=== PATIENT | female | born 1980 | race Two or more races ===

== ENCOUNTER 2023-12-30 12:13 | Inpatient (IN) | payer OTHER ==
[~2023-12-30] VITALS: Ht 160 cm; Wt 126.0 kg
[2023-12-30] MEDS: ASPirin 325 MG TAB PO ONE (12:41)
[2023-12-30] MEDS: HYDROcodone-ACET 10/325MG TAB PO ONE (12:41)
[2023-12-30] MEDS: NITROGLYCERIN 0.4 MG SL TAB SL ONE (13:09)
[2023-12-30 13:11] LABS: Basophils # (auto) 0.1 10 ^3/uL (0-0.2); Basophils % (auto) 0.8 % (0.0-2.0); Eosinophils # (auto) 0.2 10 ^3/uL (0-0.8); Eosinophils % (auto) 1.6 % (0.0-7.0); Hematocrit 38.5 % (36.0-46.0); Hemoglobin 13.2 g/dL (12.2-16.2); Lymphocytes # (auto) 2.3 10 ^3/uL (0.4-5.4); Lymphocytes % (auto) 22.6 % (10.0-50.0); Mean Corpuscular Hemoglobin 28.3 pg (28.0-32.0); Mean Corpuscular Hgb Conc. 34.4 g/dL (32.0-36.0); Mean Corpuscular Volume 82.4 fL (80.0-100.0); Monocytes # (auto) 0.5 10 ^3/uL (0-1.3); Monocytes % (auto) 5.3 % (0.0-12.0); Neutrophils # (auto) 7.1 10 ^3/uL (1.6-8.6); Neutrophils % (auto) 69.7 % (37.0-80.0); Platelet Count (auto) 313 10^3/uL (140-450); Red Blood Cells 4.67 10^6/uL (4.0-5.20); White Blood Cell 10.2 10^3/uL (4.4-10.8)
[2023-12-30 13:25] LABS: Alanine Aminotransferase 26 U/L (7-40); Albumin 4.1 g/dL (3.2-4.8); Alkaline Phosphatase 94 U/L (46-116); Anion Gap 9 (5-15); Aspartate Aminotransferase 24 U/L (13-40); BUN/Creatinine Ratio 15.3 (10.0-20.0); Bilirubin, Total 0.2 mg/dL (0.2-1.0); Blood Urea Nitrogen 15 mg/dL (9-23); Calcium 9.5 mg/dL (8.7-10.4); Carbon Dioxide 21 mmol/L (20-30); Chloride 104 mmol/L (98-107); Glucose 236 mg/dL (74-106); Magnesium 1.6 mg/dL (1.6-2.6); Potassium 4.4 mmol/L (3.5-5.1); Sodium 134 mmol/L (136-145); Total Protein 6.7 g/dL (5.7-8.2)
[2023-12-30 13:50] LABS: Urine Bacteria None Seen /hpf (None Seen)
[2023-12-30 14:04] LABS: Urine Blood Negative /uL (Negative); Urine Clarity Clear (Clear); Urine Color Light-Yellow (Yellow); Urine Protein, UAD Negative (Negative); Urine Specific Gravity 1.022 (1.001-1.035); Urine Urobilinogen Normal (Negative); Urine WBC 1 /hpf (0 - 5); Urine pH 6.5 (5.0-9.0)
[2023-12-30 16:21] VITALS: PULSE 86; RESP 16; O2SAT 100
[2023-12-30 19:45] VITALS: PULSE 84; RESP 17; O2SAT 97
[2023-12-30] MEDS ORDERED: ACETAMINOPHEN 325 MG TAB PO PRN (22:30)
[2023-12-30] MEDS ORDERED: HYDROcodone-ACET 5/325MG TAB PO PRN (22:30)
[2023-12-30] MEDS ORDERED: ONDANSETRON HCL 4 MG/2 ML VIAL IV PRN (22:30)
[2023-12-30] MEDS ORDERED: DOCUSATE SOD 100 MG CAP PO PRN (22:30)
[2023-12-30] MEDS ORDERED: MORPHINE SULFATE INJ 2 MG/ml SYRG IV PRN ×2 (22:30→23:00)
[2023-12-30] MEDS: SODIUM CHLORIDE 0.9% 1,000 ML IV SCH (22:37)
[2023-12-30] MEDS ORDERED: NITROGLYCERIN 0.4 MG SL TAB SL PRN (23:00)
[2023-12-31] VITALS (7 sets, daily range): BP systolic 117–140; BP diastolic 60–77; PULSE 69–88; RESP 14–20; TEMP 97.8–98.2; O2SAT 93–99
[2023-12-31 06:04] LABS: Basophils # (auto) 0.1 10 ^3/uL (0-0.2); Basophils % (auto) 0.8 % (0.0-2.0); Eosinophils # (auto) 0.2 10 ^3/uL (0-0.8); Eosinophils % (auto) 2.6 % (0.0-7.0); Hematocrit 34.6 % (36.0-46.0); Hemoglobin 12.1 g/dL (12.2-16.2); Lymphocytes # (auto) 2.5 10 ^3/uL (0.4-5.4); Lymphocytes % (auto) 27.6 % (10.0-50.0); Mean Corpuscular Hemoglobin 28.6 pg (28.0-32.0); Mean Corpuscular Hgb Conc. 34.9 g/dL (32.0-36.0); Mean Corpuscular Volume 81.8 fL (80.0-100.0); Monocytes # (auto) 0.6 10 ^3/uL (0-1.3); Monocytes % (auto) 6.6 % (0.0-12.0); Neutrophils # (auto) 5.7 10 ^3/uL (1.6-8.6); Neutrophils % (auto) 62.4 % (37.0-80.0); Platelet Count (auto) 287 10^3/uL (140-450); Red Blood Cells 4.23 10^6/uL (4.0-5.20); White Blood Cell 9.2 10^3/uL (4.4-10.8)
[2023-12-31 06:24] LABS: Alanine Aminotransferase 22 U/L (7-40); Albumin 3.7 g/dL (3.2-4.8); Alkaline Phosphatase 73 U/L (46-116); Anion Gap 7 (5-15); Aspartate Aminotransferase 15 U/L (13-40); BUN/Creatinine Ratio 15.1 (10.0-20.0); Bilirubin, Total 0.4 mg/dL (0.2-1.0); Blood Urea Nitrogen 11 mg/dL (9-23); Calcium 9.2 mg/dL (8.7-10.4); Carbon Dioxide 23 mmol/L (20-30); Chloride 105 mmol/L (98-107); Glucose 167 mg/dL (74-106); Potassium 3.9 mmol/L (3.5-5.1); Sodium 135 mmol/L (136-145); Total Protein 6.3 g/dL (5.7-8.2)
[2023-12-31] MEDS ORDERED: DEXTROSE (50%) 50ML SYRG IV PRN ×2 (08:00)
[2023-12-31 08:27] LABS: Triglycerides 128 mg/dL (< 150)
[2023-12-31 08:28] LABS: LDL Cholesterol 109 mg/dL (< 100)
[2023-12-31 08:29] LABS: Cholesterol 167 mg/dL (< 200); HDL Cholesterol 47 mg/dL (40-59)
[2023-12-31] MEDS: ASPirin 81 mg TAB PO SCH (09:20)
[2023-12-31] MEDS ORDERED: InsuLIN REG 1unit/0.01ml Soln (100units/ml) SC SCH (11:30)
[2023-12-31] MEDS ORDERED: ACCU-CHEK COMFORT CURVE STRIP VI SCH (11:30)
[2023-12-31] MEDS ORDERED: ASPI-325 PO (11:49)
[2023-12-31] MEDS ORDERED: BLOO1KIT60 XX (11:49)
[2023-12-31] MEDS ORDERED: PANT40TA2 PO (11:49)
[2023-12-31] MEDS ORDERED: EMPA1TAB PO (11:49)
[2023-12-31] MEDS ORDERED: ATOR-507 PO (11:49)
[2023-12-31] MEDS ORDERED: LANC-347 XX (11:49)
[2023-12-31] MEDS: ACCU-CHEK COMFORT CURVE STRIP VI SCH (12:14)
[2023-12-31] MEDS: InsuLIN REG 1unit/0.01ml Soln (100units/ml) SC SCH (12:16)
[2023-12-31 13:20] LABS: Folate (Folic Acid) 22.03 ng/mL (>5.38)
== END 2023-12-31 13:40 | disposition home or self-care (01) | DRG 392 ==
LOC: ER 12:13 → TELE 22:50 → TELE-CENTR 22:50
PROVIDERS: ADMIT Internal Medicine; ATTEND Internal Medicine
DX: K21.9 Gastro-esophageal reflux disease without esophagitis (principal); E87.1 Hypo-osmolality and hyponatremia; Z68.42 Body mass index [BMI] 45.0-49.9, adult; E11.9 Type 2 diabetes mellitus without complications; E78.5 Hyperlipidemia, unspecified; E66.01 Morbid (severe) obesity due to excess calories; Z79.899 Other long term (current) drug therapy; Z79.4 Long term (current) use of insulin
CPT/HCPCS: 36415; 71045; 80053; 80061; 81001; 82306; 82607; 82746; 82962; 83036; 83735; 83880; 84439; 84443; 84484; 85025; 93005; 99291; G0378; J1815

== ENCOUNTER → 2024-01-10 | Outpatient (CLI) | payer OTHER ==
[~2024-01-10] MED LIST: ASPI-325 PO; ATOR-507 PO; BLOO1KIT60 XX; EMPA1TAB PO; LANC-347 XX; PANT40TA2 PO
== END | disposition home or self-care (01) ==
LOC: XYW 09:13
PROVIDERS: ATTEND Internal Medicine
DX: R07.9 Chest pain, unspecified (principal); E66.9 Obesity, unspecified; V89.2XXA Person injured in unspecified motor-vehicle accident, traffic, initial encounter
CPT/HCPCS: 93306

== ENCOUNTER → 2024-03-30 | Outpatient (CLI) | payer OTHER ==
[~2024-03-30] VITALS: Ht 160 cm; Wt 121.1 kg
[2024-03-30] MEDS: ADENOSINE 102 MG in GIVE UN-DILUTED 0 ML IV ONE (08:39)
--- NOTE | 2024-03-30 11:27 | DVHSR ---
APPROVED REPORT Exam: Nuclear Stress Test BMI: 0 Stress Test Details HR Max Heart Rate (APMHR): 178.162936 bpm Target HR (85% APMHR): 151.556412 bpm BP ECG Stress ECG Conclusion Resting ECG shows mild anterior anterolateral wall defect in the basal to mid segment. Likely repres enting breast attenuation artifact. Stress images shows the same mild anterior anterolateral wall defect likely representing the same att enuation artifact due to high likelihood breast attenuation. Overall preserved left ventricular systolic function at 76%. Impression: Anterior anterolateral wall defect of mild intensity in the basal to mid segment of the anterior anterolateral wall likely representing breast attenuation artifact, clinical correlation is required, well-preserved left ventricular systolic function, likely low risk study NM EXAM: Myocardial Perfusion REST/STRESS Imaging Protocol: Rest Tc-99m/Stress Tc-99m 1 day Resting Data Rest SPECT myocardial perfusion imaging was performed in supine position 60 minutes following the int ravenous injection of 14 mCi of Tc-99m Sestamibi. Time of rest injection: 0730 Time of rest imagin Administration Route: IV Administration Site: Right Arm Pharmacologic Stress Pharmacologic stress test was performed by injecting Adenosine mg IV push followed by the intravenou s injection of 35 mCi of Tc-99m Sestamibi. Time of stress injection: 0840 Time of stress imagin Administration Route: IV Administration Site: Right Arm Gated Stress SPECT was performed 60 minutes after stress injection. The images were gated to evaluate regional wall motion and calculate left ventricular ejection fracti on. Stress only was performed in the Supine position. Nuclear Conclusion ECG Findings: negative for ischemia Clinical Findings: negative for ischemia Nuclear Findings: negative for ischemia Exercise Capacity: not assessed Left Ventricular Function: normal Risk Study: low Resting ECG shows mild anterior anterolateral wall defect in the basal to mid segment. Likely repres enting breast attenuation artifact. Stress images shows the same mild anterior anterolateral wall defect likely representing the same att enuation artifact due to high likelihood breast attenuation. Overall preserved left ventricular systolic function at 76%. Impression: Anterior anterolateral wall defect of mild intensity in the basal to mid segment of the anterior anterolateral wall likely representing breast attenuation artifact, clinical correlation is required, well-preserved left ventricular systolic function, likely low risk study
== END | disposition home or self-care (01) ==
LOC: XY 07:32
PROVIDERS: ATTEND Student in an Organized Health Care Education/Training Program
DX: R07.9 Chest pain, unspecified (principal)
CPT/HCPCS: 78452; 93017; A9500; J0153

== ENCOUNTER 2024-05-23 19:59 | Emergency (ER) | payer MEDICAID ==
[~2024-05-23] VITALS: Ht 160 cm; Wt 109.0 kg
[2024-05-23 20:47] LABS: COVID19 ANTIGEN SOFIA FIA NEGATIVE (NEGATIVE); Rapid Influenza A Negative (Negative); Rapid Influenza B Negative (Negative)
--- NOTE | 2024-05-23 20:50 | DVH ---
EXAM: XY CHEST XRAY 1 VIEW CLINICAL HISTORY: Cough x1.5 month TECHNIQUE: Single AP view of the chest WID: COMPARISON: None FINDINGS: Lines and tubes: None Chest: The heart size and pulmonary vasculature is within normal limits. No pleural effusion, pneumothorax, or consolidation. The osseous structures are grossly intact. IMPRESSION: No acute cardiopulmonary abnormality.
[2024-05-23] MEDS: IPRATROPIUM BROM 0.5 MG/2.5ML INH SOL NEB ONE (21:02)
[2024-05-23] MEDS: ALBUTEROL SULF 2.5 MG/0.5ML(0.5%) NEB SOLN NEB ONE (21:02)
[2024-05-23 21:58] LABS: Basophils # (auto) 0.1 10 ^3/uL (0-0.2); Basophils % (auto) 0.9 % (0.0-2.0); Eosinophils # (auto) 0.2 10 ^3/uL (0-0.8); Eosinophils % (auto) 2.4 % (0.0-7.0); Hematocrit 42.8 % (36.0-46.0); Lymphocytes # (auto) 3.4 10 ^3/uL (0.4-5.4); Lymphocytes % (auto) 34.4 % (10.0-50.0); Mean Corpuscular Hemoglobin 26.8 pg (28.0-32.0); Mean Corpuscular Hgb Conc. 32.8 g/dL (32.0-36.0); Mean Corpuscular Volume 81.8 fL (80.0-100.0); Monocytes # (auto) 0.7 10 ^3/uL (0-1.3); Monocytes % (auto) 7.7 % (0.0-12.0); Neutrophils # (auto) 5.3 10 ^3/uL (1.6-8.6); Neutrophils % (auto) 54.6 % (37.0-80.0); Nucleated Red Blood Cells % 0.1 %; Platelet Count (auto) 292 10^3/uL (140-450); Red Blood Cells 5.24 10^6/uL (4.0-5.20); Red Cell Distribution Width 14.5 % (11.8-14.3); White Blood Cell 9.8 10^3/uL (4.4-10.8)
[2024-05-23 22:09] LABS: Chloride 104 mmol/L (98-107); Potassium 3.9 mmol/L (3.5-5.1)
[2024-05-23 22:15] LABS: BUN/Creatinine Ratio 9.8 (10.0-20.0); Calcium 9.8 mg/dL (8.7-10.4)
[2024-05-23 22:27] LABS: Glucose 221 mg/dL (74-106); Sodium 136 mmol/L (136-145)
[2024-05-23 22:28] LABS: Blood Urea Nitrogen 8 mg/dL (9-23)
[2024-05-23] MEDS ORDERED: AUG875T PO (22:36)
[2024-05-23] MEDS ORDERED: PRED20TA2 PO (22:36)
--- NOTE | 2024-05-23 22:36 | ED.PDOC ---
SOB-HPI HPI Comments 44-year-old female complaining of worsening cough congestion x1 month. States cough started getting worse approximate 10 days ago, she was seen by primary care doctor started on steroids and he was azithromycin. States she finished azithromycin four days ago. Feels worse. Nothing making it better. Denies any fever. Does report a history of asthma. Chief Complaint: Flu like Time Seen by MD: 20:11 Primary Care Provider: JOHN Keating notes: Nurses Notes Information Source: Patient Mode of Arrival: Ambulatory Severity: Mild Past Medical History PAST MEDICAL HISTORY: Depression Surgical History: , Hysterectomy ANIMAL RIDE ATTENDANT History: No Pertinent ANIMAL RIDE ATTENDANT History Family History Family History: Family hx of DM Social History Smoker: Non-Smoker, Quit Greater Than 1 Year Alcohol: Occasionally Drugs: Marijuana, Methamphetamine Lives In: Homeless Constitutional: denies: chills, diaphoresis, fatigue, fever, malaise, sweats, weakness, others EENTM: denies: blurred vision, double vision, ear bleeding, ear discharge, ear drainage, ear pain, ear ringing, eye pain, eye redness, hearing loss, mouth pain, mouth swelling, nasal discharge, nose bleeding, nose congestion, nose pain, photophobia, tearing, throat pain, throat swelling, voice changes, others Respiratory: reports: cough; denies: hemoptysis, orthopnea, SOB at rest, shortness of breath, SOB with excertion, stridor, wheezing, others Cardiovascular: denies: chest pain, dizzy spells, diaphoresis, Dyspnea on exertion, edema, irregular heart beat, left arm pain, lightheadedness, palpitations, PND, syncope, others Gastrointestinal: denies: abdomen distended, abdominal pain, blood streaked bowels, constipated, diarrhea, dysphagia, difficulty swallowing, hematemesis, melena, nausea, poor appetite, poor fluid intake, rectal bleeding, rectal pain, vomiting, others Genitourinary: denies: abnormal vagina bleeding, burning, dyspareunia, dysuria, flank pain, frequency, hematuria, incontinence, pain, , vagina discha rge, urgency, others Neurological: denies: dizziness, fainting, headache, left sided numbness, left sided weakness, numbness, paresthesia, pre-existing deficit, right sided numbness, right sided weakness, seizure, speech problems, tingling, tremors, weakness, others Musculoskeletal: denies: back pain, gout, joint pain, joint swelling, muscle pain, muscle stiffness, neck pain, others Integumetry: denies: bruises, change in color, change in hair/nails, dryness, laceration, lesions, lumps, rash, wounds, others Allergic/Immunocompromised: denies: Difficulty Healing, Frequent Infections, Hives, Itching, others Physical Exam General Appearance: No Apparent Distress, Normal HEENT: Normal ENT Inspection, Pharynx Normal, TMs Normal Neck: Full Range of Motion, Non-Tender, Normal, Normal Inspection Respiratory: Chest Non-Tender, Lungs Clear, No Accessory Muscle Use, No Respiratory Distress, Normal Breath Sounds Cardiovascular: No Edema, No JVD, No Murmur, No Gallop, Normal Peripheral Pulses, Regular Rate/Rhythm Breast Exam: Deferred Gastrointestinal: No Organomegaly, Non Tender, No Pulsatile Mass, Normal Bowel Sounds, Soft Genitalia: Deferred Pelvic: Deferred Rectal: Deferred Extremities: No calf tenderness, Normal capillary refill, Normal inspection, Normal range of motion, Non-tender, No pedal edema Musculoskeletal : Apperance: Normal Neurologic: Alert, home health travel ot II-XII nml as Tested, No Motor Deficits, Normal Affect, Normal Mood, No Sensory Deficits Cerebellar Function: Normal Reflexes: Normal Skin: Dry, Normal Color, Warm Lymphatic: No Adenopathy Was a procedure done? Was a procedure done?: No Differential Dx Differential Diagnosis: Asthma, Bronchitis, Pneumonia X-Ray, Labs, Meds, VS Vital Signs Date Time Temp Pulse Resp B/P (MAP) Pulse Ox O2 Delivery O2 Flow Rate FiO2 05/23/24 21:02 20 98 Room Air* 0 21 21 05/23/24 20:14 98.2 93 22 149/97 (114) 98 Lab Test 05/23/24 21:11 05/23/24 20:10 Range/Units White Blood Count 9.8 4.4-10.8 10^3/uL Red Blood Count 5.24 H 4.0-5.20 10^6/uL Hemoglobin 14.0 12.2-16.2 g/dL Hematocrit 42.8 36.0-46.0 % Mean Corpuscular Volume 81.8 80.0-100.0 fL Mean Corpuscular Hemoglobin 26.8 L 28.0-32.0 pg Mean Corpuscular Hemoglobin Concent 32.8 32.0-36.0 g/dL Red Cell Distribution Width 14.5 H 11.8-14.3 % Platelet Count 292 140-450 10^3/uL Mean Platelet Volume 7.7 6.9-10.8 fL Neutrophils (%) (Auto) 54.6 37.0-80.0 % Lymphocytes (%) (Auto) 34.4 10.0-50.0 % Monocytes (%) (Auto) 7.7 0.0-12.0 % Eosinophils (%) (Auto) 2.4 0.0-7.0 % Basophils (%) (Auto) 0.9 0.0-2.0 % Neutrophils # (Auto) 5.3 1.6-8.6 10 ^3/uL Lymphocytes # (Auto) 3.4 0.4-5.4 10 ^3/uL Monocytes # (Auto) 0.7 0-1.3 10 ^3/uL Eosinophils # (Auto) 0.2 0-0.8 10 ^3/uL Basophils # (Auto) 0.1 0-0.2 10 ^3/uL Nucleated Red Blood Cells 0.1 % Sodium Level 136 136-145 mmol/L Potassium Level 3.9 3.5-5.1 mmol/L Chloride Level 104 98-107 mmol/L Carbon Dioxide Level Pending Anion Gap Pending Blood Urea Nitrogen 8 L 9-23 mg/dL Creatinine 0.82 0.550-1.02 mg/dL Glomerular Filtration Rate Calc 92 >90 mL/min BUN/Creatinine Ratio 9.8 L 10.0-20.0 Serum Glucose 221 H 74-106 mg/dL Calcium Level 9.8 8.7-10.4 mg/dL Influenza Type A Antigen Negative Negative Influenza Type B Antigen Negative Negative SARS-CoV-2 Antigen (Rapid) Negative NEGATIVE Current Medications Medications (Trade) Dose Ordered Sig/Frantz Route Start Time Stop Time Status Last Admin Albuterol (Ventolin Medneb) 2.5 mg ONCE ONCE NEB 05/23/24 20:30 05/23/24 20:31 DC 05/23/24 21:02 Ipratropium Harmony (Atrovent Medneb) 0.5 mg ONCE ONCE NEB 05/23/24 20:30 05/23/24 20:31 DC 05/23/24 21:02 X-Ray, Labs, Meds, VS Comment Imaging: X-rays and CT scans were reviewed and interpreted by this provider, imaging shows no fractures and no pathological disease. Pending radiology review. Laboratory: Labs reviewed and interpreted by this provider. No significant abnormalities noted. Patient has prior medical visits reviewed. Med reconciliation performed Vital signs reviewed Time of 1ST Reevaluation: 22:36 Reevaluation 1ST: Improved Patient Education/Counseling: Diagnosis, Treatment, Need For Follow Up (Patient advised to follow-up in the emergency room in the next 24 to 48 hours if symptoms do not improve. Advised follow-up with PCP in the next 3 to 5 days. Patient verbalized understanding. ) Family Education/Counseling: Diagnosis Departure 1 Departure Time of Disposition: 22:35 Impression: Primary Impression: Acute bronchitis Qualified Codes: J20.9 - Acute bronchitis, unspecified Disposition: HOME / SELF CARE / HOMELESS Condition: Fair e-Prescriptions Prednisone (Prednisone) 20 Mg Tab 40 MG PO DAILY for 5 Days, #10 MG Prov: ROSALIE BRAVO 05/23/24 Amoxicillin & Pot Clavulanate (AUGMENTIN TABLET) 875 Mg Tb 875 MG PO BID for 10 Days, #20 TAB Prov: ROSALIE BRAVO 05/23/24 Discharged With: Self Critical Care Note Critical Care Time?: No Stability Stability form required: No Heart Score Heart Score: Heart Score Response (Comments) Value History N/A 0 EKG N/A 0 Age N/A 0 Risk Factors N/A 0 Troponin N/A 0 Total 0 ROSALIE BRAVO May 23, 2024 22:36
[2024-05-23 22:39] LABS: Anion Gap 13 (5-15); Carbon Dioxide 19 mmol/L (20-31)
[2024-05-23 23:08] VITALS: BP 120/79; TEMP 98.1
[2024-05-23 23:09] VITALS: PULSE 97; RESP 19; O2SAT 100
[2024-05-23] MEDS: methylPREDNISolone SOD SUCC 125 MG/2 ML VL IM ONE (23:10)
== END 2024-05-23 23:18 | disposition home or self-care (01) ==
LOC: EDUNIT# 19:59 → ER 19:59 → EDBD 19:59 → ER 23:18
DX: J20.9 Acute bronchitis, unspecified (principal); F32.9 Major depressive disorder, single episode, unspecified; Z90.710 Acquired absence of both cervix and uterus; Z59.00 Homelessness unspecified; Z98.890 Other specified postprocedural states; Z20.822 Contact with and (suspected) exposure to COVID-19
CPT/HCPCS: 36415; 71045; 80048; 85025; 87426; 87804; 94640; 96372; 99284; J2919